=== PATIENT | female | born 2000 | race Caucasian/White ===

== ENCOUNTER 2021-03-05 02:12 | Emergency (ER) | payer OTHER, SELFPAY ==
[2021-03-05 02:15] VITALS: BP 96/67; PULSE 95; RESP 16; TEMP 36.3; O2SAT 100; BMI 22.3
--- NOTE | 2021-03-05 04:31 | ED_ITS ---
HPI - Skin/Abscess/Foreign Bdy General Chief complaint: Skin/Abscess/Foreign Body Stated complaint: cyst Time Seen by Provider: 03/05/21 02:50 Source: patient Mode of arrival: ambulatory History of Present Illness HPI narrative: This is a 20-year-old female who was seen by her aligner barrel and receiver on Tuesday and started on antibiotics that time for who ?an infection in her private area?. Patient states that despite taking the antibiotics as directed the infection has continued to increase in size as well as pain and she states it is so painful that she could not take it and needed to be seen in the emergency room. She denies any fever, chills, urinary symptoms. Related Data Allergies Allergy/AdvReac Type Severity Reaction Status Date / Time red dye Allergy Unknown Verified 03/05/21 02:22 Review of Systems Review of Systems: Pertinent positives and negatives as stated in HPI 10 point review of systems is otherwise negative. PMFSH Past Medical History Source: nursing notes reviewed Medical History Celiac disease Social History Social History Alcohol intake: never Patient Tobacco Use Status: Never used Tobacco Use of substances other than those prescribed or required for medical reasons: No Advance Directives: No Patient : No Physical Exam Vital Signs: Vital Signs: Last Vital Signs Temp 97.3 F 03/05/21 02:15 Pulse 95 03/05/21 02:15 Resp 16 03/05/21 02:15 BP 96/67 03/05/21 02:15 Pulse Ox 100 03/05/21 02:15 Body Mass Index 22.3 VITAL SIGNS: Reviewed. GENERAL: Well developed, well nourished, moderate distress. HEAD: Normocephalic/atraumatic EYES: PERRLA, EOMI OROPHARYNX: no oral lesions noted, posterior pharynx clear LUNGS: Normal breath sounds. No adventitious sounds or accessory muscle use. SpO2<100> CARDIOVASCULAR: Regular rate and rhythm without noted murmurs ABDOMEN: Soft, non-tender, non-distended with bowel sounds. : ([employer]) there is a large, draining left Bartholin cyst without induration or evidence of cellulitis NEUROLOGIC: Alert and oriented x 4. Course Course Course Narrative: This is a 20-year-old female with history and clinical presentation consistent with Bartholin cyst, incision and drainage was performed with incomplete evacuation and patient was unable to tolerate placement of either a Word catheter or Sergio ring. However, there was almost complete evacuation of the abscess and patient was instructed to continue with Sitz baths/follow-up with her aligner barrel and receiver/and continue antibiotics. Procedures Abscess I/D Site: bartholin's gland Side (if applicable): left Sedation/analgesia: none Technique: incised with blade Amount of fluid expressed (mL): 50 Sent for culture/gram staining?: No Irrigation: No Packing used?: none Complications: pain Discharge Plan Discharge Clinical Impression: Bartholin cyst Patient Disposition: Home, Self-Care Instructions: Bartholin Cyst (ED), Sitz Bath (DC) Additional Instructions: 1. Complete entire course of antibiotics as instructed by your aligner barrel and receiver. 2. Please perform Sitz baths 2 to 3 times a day and attempt to express additional infection. 3. Contact the office of your aligner barrel and receiver this morning to set up an appointment for re-evaluation. Return to the ER for any acute worsening of your symptoms. Referrals: Shabana Julio MD [Primary Care Provider] - 2 days (Re-evaluation for Bartholin's cyst after initial drainage in the ER 03/05.)
== END 2021-03-05 04:51 | disposition home or self-care (01) ==
PROVIDERS: Emergency Provider Student in an Organized Health Care Education/Training Program; PCP Internal Medicine
DX: N75.0 Cyst of Bartholin's gland (principal)
CPT/HCPCS: 56420; 99284

== ENCOUNTER 2021-04-11 06:11 | Emergency (ER) | payer OTHER, SELFPAY ==
[2021-04-11 06:40] VITALS: BP 140/70; PULSE 90; RESP 18; TEMP 36.8; O2SAT 99; BMI 21.7
--- NOTE | 2021-04-11 08:00 | ED.SKABFB ---
HPI - Skin/Abscess/Foreign Bdy General Chief complaint: Skin/Abscess/Foreign Body Stated complaint: Vaginal issue Time Seen by Provider: 04/11/21 08:00 Source: patient and old records reviewed Mode of arrival: ambulatory Limitations: no limitations History of Present Illness complaint: abscess/boil Onset (ago): day(s) Tetanus up to date: yes Location: generalized (L labia - hx of bartholin cyst) Severity: moderate Quality: aching Pain Consistency: constant Relieving factors: none Exacerbating factors: movement Context: other (hx of similar bouts currently on cephalexin) Treatments prior to arrival: antibiotic Related Data Allergies Allergy/AdvReac Type Severity Reaction Status Date / Time gluten Allergy Unknown Verified 04/11/21 06:39 red dye Allergy Unknown Verified 03/05/21 02:22 Review of Systems Review of Systems: Constitutional : No Fever, No Chills ENT/Mouth : No sore throat, No Rhinorrhea Eyes: No Eye Pain, No Swelling, No Redness Cardiovascular : No Chest Pain, No SOB Respiratory : No Cough, No Sputum Gastrointestinal : No Nausea, No Vomiting, No Diarrhea, No abdominal Pain Genitourinary : No Dysuria, No Hematuria Musculoskeletal : No joint pain, No Myalgias, No Joint Swelling Skin : No Skin Lesions, positive skin rash Neuro : No Weakness, No Numbness, No Headache Psych : No Anxiety, No Depression Heme/Lymph: No Bruising, No Bleeding,No Lymphadenopathy Endocrine : No Polyuria, No Polydipsia All other systems reviewed and are negative PMFSH Past Medical History Medical History Bartholin cyst Celiac disease Social History Social History Alcohol intake: never Patient Tobacco Use Status: Never used Tobacco Advance Directives: Yes Advance Directives Information Provided: No Advance Directives on File: No Patient : No Physical Exam Vital Signs: Vital Signs: Last Vital Signs Temp 98.3 F 04/11/21 06:40 Pulse 90 04/11/21 06:40 Resp 18 04/11/21 06:40 BP 140/70 H 04/11/21 06:40 Pulse Ox 99 04/11/21 06:40 Body Mass Index 21.7 Appearance: Alert. Oriented X3. No acute distress. Eyes: Pupils equal, round and reactive to light. ENT: Pharynx normal. Neck: Normal inspection. Neck supple. CVS: Normal heart rate and rhythm. Pulses normal. Respiratory: No respiratory distress. Breath sounds normal. Abdomen: Soft and nontender. : L large bartholin cyst no surrounding cellulitis Skin: Skin warm and dry. Normal skin color. Normal skin turgor. Extremities: No lower extremity edema. No calf ttp Neuro: Oriented X 3. No motor deficit. No sensory deficit. Procedures Abscess I/D Site: bartholin's gland Side (if applicable): left Local Anesthetic: lidocaine 1% Amount of anesthesia used (mL): 5 Technique: incised with blade Amount of fluid expressed (mL): 5 Sent for culture/gram staining?: No Irrigation: Yes Packing used?: none MDM - Skin/Abscess/Foreign Bdy MDM Narrative Medical decision making narrative: 20 yo female with hx of bartholin cyst here requesting drainage - recurrent, same partner prior neg STI, on cephalexin - at this time will I/D area patient is not toxic, no systemic symptoms Discharge Plan Discharge Clinical Impression: Bartholin cyst Patient Disposition: Home, Self-Care Instructions: Bartholin Cyst (ED) Additional Instructions: return to ED for any worsening symptoms or concerns continue antibiotics follow up with your OB for wound check this week Stand Alone Forms: Work/School Release
== END 2021-04-11 08:36 | disposition home or self-care (01) ==
PROVIDERS: Emergency Provider Emergency Medicine; PCP Internal Medicine
DX: N75.0 Cyst of Bartholin's gland (principal)
CPT/HCPCS: 56420; 99283; 99284

== ENCOUNTER 2022-06-18 10:18 | Outpatient (REF) | payer OTHER, SELFPAY ==
[2022-06-18 11:36] LABS: COVID-19 Test Negative (Negative); IDNOW Serial# 08D9AD1C
== END 2022-06-18 10:19 | disposition home or self-care (01) ==
LOC: HO.LAB 10:18
PROVIDERS: Visit Provider Internal Medicine
DX: Z20.822 Contact with and (suspected) exposure to COVID-19 (principal)
CPT/HCPCS: 87635; C9803